=== PATIENT | male | born 1985 | race African-American/Black ===

== ENCOUNTER 2023-10-22 16:08 | Emergency (ER) | payer SELFPAY ==
[~2023-10-22] VITALS: Ht 167.6 cm; Wt 95.0 kg
[2023-10-22] MEDS ORDERED: DOXYCYCLINE HY100 MG PO (18:40)
[2023-10-22] MEDS ORDERED: BACTRIM DS TAB1 EACH PO (18:40)
[2023-10-22] MEDS: LIDOCAINE HCL 1% LOCAL INJ 20 ML VIAL INJ ONE (18:56)
[2023-10-22] MEDS ORDERED: CEFTRIAXONE 1 GM VIAL ONE (18:57)
[2023-10-22 19:17] VITALS: O2SAT 98
== END 2023-10-22 19:17 | disposition home or self-care (01) ==
LOC: FSED 16:37
DX: L02.01 Cutaneous abscess of face (principal)
CPT/HCPCS: 10060 ×2; 80053; 85025; 87071; 87205; 96372; 99284; J0696